=== PATIENT | female | born 1995 | race American Indian/Alaskan Native ===

== ENCOUNTER 2016-11-28 18:52 | Emergency (ER) | payer MEDICAID ==
[2016-11-28 19:41] LABS: Basophils % (Auto) 0.2 % (0.0-1.8); Eosinophils % (Auto) 1.3 % (0.0-4.3); Hematocrit 36.4 % (30.3-42.9); Mean Corpuscular HGB Conc 33 % (30-34); Mean Corpuscular Hemoglobin 27 pg (28-32); Mean Corpuscular Volume 83 fl (79-97); Platelet Count 240 K/mm3 (140-440); Red Blood Count 4.42 M/mm3 (3.65-5.03); White Blood Count 7.5 K/mm3 (4.5-11.0)
[2016-11-28 19:44] LABS: Red Cell Distribution Width 20.2 % (13.2-15.2)
[2016-11-28 20:26] LABS: Bilirubin,Urine NEG (Negative); Blood,Urine SM (Negative); Ketones,Urine NEG (Negative); Leukocyte Esterase,Urine SM (Negative); Nitrite,Urine NEG (Negative); Protein,Urine <15 mg/dL mg/dL (Negative); Urobilinogen,Urine < 2.0 mg/dL (<2.0)
[2016-11-29 03:47] VITALS: BP 114/74
[2016-11-29 05:01] LABS: Anion Gap 18 mmol/L; BUN/Creatinine Ratio 11.66; Blood Urea Nitrogen 7 mg/dL (7-17); Calcium 8.9 mg/dL (8.4-10.2); Carbon Dioxide 25 mmol/L (22-30); Glucose 110 mg/dL (65-100); Potassium 3.7 mmol/L (3.6-5.0); Sodium 142 mmol/L (137-145)
--- NOTE | 2016-11-29 05:46 | Ultrasound Report ---
FINAL REPORT PROCEDURE: US TRANSVAGINAL TECHNIQUE: Real-time transvaginal sonography in multiple planes of the pelvis was performed with image documentation. This examination was performed without Doppler. Vascular abnormalities, including ovarian torsion, will not be detectable without Doppler evaluation. CPT 44128 HISTORY: pelvic pain COMPARISON: No prior studies are available for comparison. FINDINGS: UTERUS Size: 8.5 x 5.5 x 5.6 cm. Endometrial thickness: 20.8 mm. Orientation: anteverted. Cervix: Normal. Fibroids/masses: None. RIGHT Ovary: 4.2 x 2.7 x 2.9 cm. Appearance: There is a 2.8 centimeters cyst.. LEFT Ovary: 3.2 x 1.8 x 2.0 cm. Appearance: There is a 1.6 centimeter complex cyst.. Pelvic fluid: None. Other: None. IMPRESSION: There are bilateral ovarian cysts. There is no torsion or mass. There is no free pelvic fluid..
--- NOTE | 2016-11-29 05:47 | Ultrasound Report ---
FINAL REPORT PROCEDURE: US pelvic duplex Doppler ultrasound TECHNIQUE: Real-time transabdominal sonography in multiple planes of the pelvis was performed with image documentation. This examination was performed without Doppler. Vascular abnormalities, including ovarian torsion, will not be detectable without Doppler evaluation. HISTORY: pelvic pain COMPARISON: No prior studies are available for comparison. FINDINGS: UTERUS Size: 8.5 x 5.5 x 5.6 cm. Endometrial thickness: 20.8 mm. Orientation: anteverted. Cervix: Normal. Fibroids/masses: None. RIGHT Ovary: 4.2 x 2.7 x 2.9 cm. Appearance: There is a 2.8 centimeters cyst.. LEFT Ovary: 3.2 x 1.8 x 2.0 cm. Appearance: There is a 1.6 centimeter complex cyst.. Pelvic fluid: None. Other: None. IMPRESSION: There are bilateral ovarian cysts. There is no torsion or mass. There is no free pelvic fluid..
--- NOTE | 2016-11-29 06:04 | Emergency Department Report ---
HPI - General Chief Complaint: Abdominal Pain Time Seen by Provider: 11/29/16 03:37 - HPI HPI: This is a 21-year-old -[place] female who presents to the emergency department with complaint of lower abdominal and/or pelvic discomfort since yesterday. She also complains of some mild vaginal bleeding. Patient says that she had her last Reymundo. About 9 days ago. Despite the fact that she admits to a regular. She is convinced that she is . She feels as if she can feel the baby moving. She did not take any home tests or any other previous visits to an [facility]. The vaginal bleeding was light and has resolved since she has been in the emergency department. She says that she used four total pads today. The patient is with one previous miscarriage and one live child. She does not have an [facility]. She is not taken anything for symptoms prior to presentation. She denies any vaginal discharge, dysuria, fever, nausea, vomiting. ED Past Medical Hx - Past Medical History Previous Medical History?: No - Surgical History Past Surgical History?: No - Social History Smoking Status: Current Every Day Smoker Substance Use Type: None - Medications Home Medications: Home Medications Medication Instructions Recorded Confirmed Last Taken Type No Known Home Medications [No 11/29/16 11/29/16 Unknown History Reported Home Medications] ED Review of Systems ROS: Stated complaint: POSS MISCARRIAGE Other details as noted in HPI Comment: All other systems reviewed and negative Constitutional: denies: chills, fever Eyes: denies: eye pain, eye discharge, vision change ENT: denies: ear pain, throat pain Respiratory: denies: cough, shortness of breath, wheezing Cardiovascular: denies: chest pain, palpitations Gastrointestinal: abdominal pain. denies: nausea, vomiting Genitourinary: other (vag bleed). denies: urgency, dysuria, discharge Musculoskeletal: denies: back pain, joint swelling, arthralgia Skin: denies: rash, lesions Neurological: denies: headache, weakness, paresthesias Physical Exam - Physical Exam Vital Signs: Vital Signs 11/28/16 11/29/16 11/29/16 19:14 03:38 03:45 Temperature 98.6 F 97.4 F L Pulse Rate 94 H 75 Respiratory 20 20 Rate Blood Pressure 150/84 Blood Pressure 114/74 [Left] O2 Sat by Pulse 100 99 99 Oximetry Physical Exam: GENERAL: The patient is well-developed well-nourished. HEENT: Normocephalic. Atraumatic. Extraocular motions are intact. Patient has moist mucous membranes. Pupils equal reactive to light bilaterally. NECK: Supple. Trachea is midline. CHEST/LUNGS: Clear to auscultation. There is no respiratory distress noted. HEART/CARDIOVASCULAR: Regular. There is no tachycardia. There is no gallop rub or murmur. ABDOMEN: Abdomen is soft. There is some tenderness to palpation to the lower quadrants of the abdomen. No guarding or rebound tenderness. Patient has normal bowel sounds. There is no abdominal distention. SKIN: Skin is warm and dry. NEURO: The patient is awake, alert, and oriented. The patient is cooperative. The patient has no focal neurologic deficits. The patient has normal speech and gait. MUSCULOSKELETAL: There is no tenderness or deformity. There is no limitation range of motion. There is no evidence of acute injury. ED Course Vital Signs 11/28/16 11/29/16 11/29/16 19:14 03:38 03:45 Temperature 98.6 F 97.4 F L Pulse Rate 94 H 75 Respiratory 20 20 Rate Blood Pressure 150/84 Blood Pressure 114/74 [Left] O2 Sat by Pulse 100 99 99 Oximetry ED Medical Decision Making - Lab Data Result diagrams: 11/28/16 19:28 11/29/16 04:22 - Radiology Data Radiology results: report reviewed Transvaginal/pelvic ultrasound shows bilateral ovarian cysts. 2.8 cm on the right and 1.6 cm on the left. No torsion or mass. No free fluid in the pelvis. - Medical Decision Making 21-year-old female presents with 24 hours of lower abdominal and/or pelvic discomfort as well as some mild vaginal bleeding. Patient is convinced she is and concerned that she is having a miscarriage. Patient had a negative urine test. A quantitative beta hCG was also sent that came back negative. Despite discussing this with the patient, she still is convinced that she is . For this reason, as well as to evaluate her lower abdominal and/or pelvic discomfort, a transvaginal ultrasound was done. It shows a bilateral ovarian cysts which could be the source of the patient's discomfort. There is no sign of any acute uterine . Patient will be given referrals for [facility]. She is to return to the emergency department with any worsening of her symptoms or any acute distress. - Differential Diagnosis , miscarriage, ovarian cyst, ovarian torsion, UTI Critical Care Time: No Critical care attestation.: If time is entered above; I have spent that time in minutes in the direct care of this critically ill patient, excluding procedure time. ED Disposition Clinical Impression: Pelvic pain, Dysfunctional uterine bleeding Ovarian cyst Qualifiers: Laterality: bilateral Qualified Code(s): N83.201 - Unspecified ovarian cyst, right side; N83.202 - Unspecified ovarian cyst, left side Disposition: DISCHARGED TO HOME OR SELFCARE Is pt being admited?: No Condition: Stable Instructions: Abdominal Pain (ED), Dysfunctional Uterine Bleeding (ED), Ovarian Cyst (ED) Additional Instructions: Please follow-up with an [facility] in the next few days. Return to the emergency department with any worsening of your symptoms or any acute distress. Referrals: PRIMARY CARE, [Primary Care Provider] - 3-5 Days NELSON SINGH MD [Staff Physician] - 3-5 Days ANIYA HEART MD [Staff Physician] - 3-5 Days Time of Disposition: 06:05
== END 2016-11-29 06:22 | disposition home or self-care (01) ==
LOC: ED 18:52
DX: N93.8 Other specified abnormal uterine and vaginal bleeding (principal); N83.201 Unspecified ovarian cyst, right side; N83.202 Unspecified ovarian cyst, left side; F17.200 Nicotine dependence, unspecified, uncomplicated
CPT/HCPCS: 36415; 76830; 80048; 81001; 84702; 84703; 85025; 86850; 86900; 86901; 93975; 99284

== ENCOUNTER 2017-01-03 10:41 | Emergency (ER) | payer MEDICAID ==
[2017-01-03 11:15] VITALS: BP 121/86
--- NOTE | 2017-01-03 12:07 | Emergency Department Report ---
ED ENT HPI - General Chief complaint: Dental/Oral Stated complaint: LUMPS IN BOTH BREASTS Time Seen by Provider: 01/03/17 11:26 Source: patient Mode of arrival: Ambulatory Limitations: No Limitations - History of Present Illness complaint: tooth pain, other (b breast pain w polycystic breast disease w us a few months back. they want to remove the cysts but she can not take off work to do so) Improves with: none Worsens with: none - Related Data Previous Rx's Medication Instructions Recorded Last Taken Type Amoxicillin 500 mg PO BID #20 capsule 01/03/17 Unknown Rx Allergies Allergy/AdvReac Type Severity Reaction Status Date / Time No Known Allergies Allergy Verified 01/03/17 11:09 ED Dental HPI - General Chief complaint: Dental/Oral Stated complaint: LUMPS IN BOTH BREASTS Time Seen by Provider: 01/03/17 11:26 Source: patient Mode of arrival: Ambulatory Limitations: No Limitations - Related Data Previous Rx's Medication Instructions Recorded Last Taken Type Amoxicillin 500 mg PO BID #20 capsule 01/03/17 Unknown Rx Allergies Allergy/AdvReac Type Severity Reaction Status Date / Time No Known Allergies Allergy Verified 01/03/17 11:09 ED Review of Systems ROS: Stated complaint: LUMPS IN BOTH BREASTS Other details as noted in HPI Comment: All other systems reviewed and negative Constitutional: no symptoms reported Eyes: as per HPI ENT: as per HPI, other (dental pain b lower) Respiratory: no symptoms reported Cardiovascular: as per HPI Endocrine: no symptoms reported, other (b breast pain chronic) Gastrointestinal: as per HPI Genitourinary: as per HPI, other (lmp 12/25) Musculoskeletal: as per HPI Skin: as per HPI Neurological: as per HPI Psychiatric: as per HPI Hematological/Lymphatic: as per HPI ED Past Medical Hx - Past Medical History Hx Asthma: Yes - Surgical History Past Surgical History?: No - Social History Smoking Status: Current Every Day Smoker Substance Use Type: None - Medications Home Medications: Home Medications Medication Instructions Recorded Confirmed Last Taken Type Amoxicillin 500 mg PO BID #20 capsule 01/03/17 Unknown Rx ED Physical Exam - General Limitations: No Limitations General appearance: alert, in no apparent distress - Head Head exam: Present: atraumatic - Eye Eye exam: Present: normal appearance - ENT ENT exam: Present: normal exam, normal orophraynx, other (b lower wisdom teeth partially through) - Neck Neck exam: Present: normal inspection - Respiratory Respiratory exam: Present: normal lung sounds bilaterally - Cardiovascular Cardiovascular Exam: Present: regular rate - GI/Abdominal GI/Abdominal exam: Present: soft - Extremities Exam Extremities exam: Present: normal inspection - Neurological Exam Neurological exam: Present: alert, altered, oriented X3 - Psychiatric Psychiatric exam: Present: normal affect, normal mood - Skin Skin exam: Present: warm, dry, intact, other (polycystic breast- being removed this summer. no infection. 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 ED Disposition Clinical Impression: Breast pain, Pain, dental Disposition: DISCHARGED TO HOME OR SELFCARE Is pt being admited?: No Does the pt Need Aspirin: No Condition: Good Additional Instructions: warm compresses may help the breast med as ordered follow up breast MD and Dentist Prescriptions: Amoxicillin 500 mg PO BID #20 capsule Referrals: PRIMARY CARE,MD [Primary Care Provider] - 3-5 Days Time of Disposition: 12:08
== END 2017-01-03 12:24 | disposition home or self-care (01) ==
LOC: ED 10:41
DX: K08.89 Other specified disorders of teeth and supporting structures (principal); N64.4 Mastodynia; J45.909 Unspecified asthma, uncomplicated; F17.200 Nicotine dependence, unspecified, uncomplicated
CPT/HCPCS: 99282

== ENCOUNTER 2018-12-10 17:38 | Emergency (ER) | payer SELFPAY ==
[2018-12-10 17:50] VITALS: BP 127/82
--- NOTE | 2018-12-10 17:52 | Emergency Department Report ---
Chief Complaint: Dental/Oral Stated Complaint: PAIN IN BREAST/TEETH Time Seen by Provider: 12/10/18 17:49 - HPI History of Present Illness: This is a 23 y.o. female that presents to the ER with toothache and bumps in right breast. Patient states she was given pain medication by grandmother with no improvement of symptoms. States wisdom teeth are growing in side horizontally causing severe pain. Patient reports pain occur when it rain in both breast causing pain. - Exam Vital Signs: Vital Signs 12/10/18 17:49 Temperature 99.4 F Pulse Rate 89 Respiratory 20 Rate Blood Pressure 127/82 O2 Sat by Pulse 97 Oximetry MSE screening note: Focused history and physical exam performed. Due to findings the following was ordered: ACC for further evaluation. ED Disposition for MSE Condition: Stable
== END 2018-12-10 23:25 ==
LOC: ED 17:38
DX: N64.4 Mastodynia (principal); Z53.21 Procedure and treatment not carried out due to patient leaving prior to being seen by health care provider

== ENCOUNTER 2021-06-22 08:13 | Emergency (ER) | payer SELFPAY ==
[2021-06-22 08:16] VITALS: BP 159/64
[2021-06-22] MEDS ORDERED: LORazepam 1 MG TAB PO ONE (08:29)
--- NOTE | 2021-06-22 08:32 | Emergency Department Report ---
ED General Adult HPI - General Chief complaint: Chest Pain Stated complaint: CHEST PAIN Time Seen by Provider: 06/22/21 08:26 Source: patient Mode of arrival: Ambulatory Limitations: No Limitations - History of Present Illness Initial comments: There is a pleasant 25-year-old female presents the emergency department with chief complaint of a panic attack this morning. Patient reports a history of anxiety, seizures and stroke. She states she is supposed to be taking Keppra daily but has been out of it for the past many months. She reports she had a seizure last month. States she woke up out of her sleep this morning and felt that her heart was racing she was short of breath and she felt very anxious. She states this is very similar to when she has had panic attacks in the past. She also reports she has been having a sharp pain in her chest that hurts with movement and palpation. She denies associated fever, chills, night sweats, headache, dizziness, blurry vision, nausea,, diarrhea, weakness or any other associated symptoms. - Related Data Previous Rx's Medication Instructions Recorded Last Taken Type Amoxicillin 500 mg PO BID #20 capsule 01/03/17 Unknown Rx Allergies Allergy/AdvReac Type Severity Reaction Status Date / Time No Known Allergies Allergy Verified 01/03/17 11:09 ED Review of Systems ROS: Stated complaint: CHEST PAIN Other details as noted in HPI Comment: All other systems reviewed and negative Constitutional: denies: chills, fever Eyes: denies: eye pain, eye discharge, vision change ENT: denies: ear pain, throat pain Respiratory: see HPI, shortness of breath. denies: cough, wheezing Cardiovascular: as per HPI, chest pain. denies: palpitations Endocrine: no symptoms reported Gastrointestinal: denies: abdominal pain, nausea, diarrhea Genitourinary: denies: urgency, dysuria, discharge Musculoskeletal: denies: back pain, joint swelling, arthralgia Skin: denies: rash, lesions Neurological: denies: headache, weakness, paresthesias Psychiatric: anxiety. denies: depression, auditory hallucinations, visual hallucinations, homicidal thoughts, suicidal thoughts Hematological/Lymphatic: denies: easy bleeding, easy bruising ED Past Medical Hx - Past Medical History Previous Medical History?: Yes Hx Asthma: Yes - Family History Family history: no significant - Social History Smoking Status: Current Some Day Smoker Substance Use Type: None - Medications Home Medications: Home Medications Medication Instructions Recorded Confirmed Last Taken Type Amoxicillin 500 mg PO BID #20 capsule 01/03/17 Unknown Rx ED Physical Exam - General Limitations: No Limitations General appearance: alert, in no apparent distress, anxious - Head Head exam: Present: atraumatic, normocephalic - Eye Eye exam: Present: normal appearance, PERRL, EOMI Pupils: Present: normal accommodation - ENT ENT exam: Present: normal exam, normal orophraynx, mucous membranes moist - Neck Neck exam: Present: normal inspection, full ROM. Absent: tenderness, meningismus - Respiratory Respiratory exam: Present: normal lung sounds bilaterally, chest wall tenderness (Tenderness to the mid chest wall). Absent: respiratory distress, wheezes, rales, rhonchi, stridor - Cardiovascular Cardiovascular Exam: Present: regular rate, normal rhythm, normal heart sounds. Absent: systolic murmur, diastolic murmur, rubs, gallop - GI/Abdominal GI/Abdominal exam: Present: soft, normal bowel sounds - Extremities Exam Extremities exam: Present: normal inspection, full ROM. Absent: tenderness, calf tenderness (No posterior calf tenderness, no lower extremity edema, negative Homans' sign bilaterally, no palpable cords.) - Back Exam Back exam: Present: normal inspection - Neurological Exam Neurological exam: Present: alert, oriented X3, normal gait - Psychiatric Psychiatric exam: Present: normal affect, normal mood, anxious - Skin Skin exam: Present: warm, dry, intact, normal color. Absent: rash ED Course Vital Signs 06/22/21 08:14 Temperature 98 F Pulse Rate 80 Respiratory 16 Rate Blood Pressure 159/64 [Left] O2 Sat by Pulse 97 Oximetry - Reevaluation(s) Reevaluation #1: 06/22/21 08:35 Patient nontoxic in no acute distress. Vital signs are stable. She is PERC negative and a low risk by Wells criteria. EKG and chest x-ray were ordered. Patient has low risk for acute coronary syndrome at this time and with a negative EKG my suspicion for this would be unlikely. She denies any cocaine use or other drug use. She does report she occasionally smokes but otherwise not any other cardiac risk factors. Chest x-ray was also ordered to rule out acute process such as pneumothorax, pneumomediastinum, pneumonia and to check the mediastinum. The patient had equal bilateral radial pulses and normal breath sounds throughout although poor effort several low suspicion for this as well. We will also run a test and if negative patient will be given a dose of oral Ativan to help with her anxiety. Reevaluation #2: 06/22/21 11:08 EKG was reviewed with attending and recommended labs and D-dimer due to the tachycardia. Initially the patient was PERC negative however when she became tachycardic at this was no longer the case so PE need to be ruled out. When I went to go discussed this with the patient I was informed by the nursing staff that she eloped. ED Medical Decision Making - EKG Data -: EKG Interpreted by Me EKG shows normal: sinus rhythm Rate: tachycardia - EKG Data Interpretation: other (Sinus tachycardia with a ventricular rate of 104, left atrial enlargement, low voltage, no acute ST-T wave abnormalities otherwise.) - Radiology Data Radiology results: report reviewed, image reviewed CHEST 2 VIEWS INDICATION / CLINICAL INFORMATION: chest pain. COMPARISON: None available. FINDINGS: SUPPORT DEVICES: None. HEART / MEDIASTINUM: No significant abnormality. LUNGS / PLEURA: Mild interstitial prominence in the lung bases. No focal lung consolidation. No pneumothorax. ADDITIONAL FINDINGS: No significant additional findings. IMPRESSION: 1. Mild interstitial prominence in the lung bases is nonspecific but can be seen with small airways disease. Recommend clinical correlation. Signer Name: Ted Caceres MD Signed: 06/22/2021 9:40 AM Workstation Name: [id number] Transcribed By: ESHA Dictated By: TED CACERES MD Electronically Authenticated By: TED CACERES MD Signed Date/Time: 06/22/21 0940 - Medical Decision Making Patient eloped prior to cardiac work-up and labs. EKG returned abnormal however when I went to go speak with the patient about this the nursing staff informed she had eloped. She initially was PERC negative however when her EKG showed sinus tachycardia this was no longer the case. D-dimer, cardiac enzymes basic labs were ordered. Discussed with attending who agreed. Patient left prior to any of this work-up and this cannot be ruled out at this time. - Differential Diagnosis Pulmonary embolism, acute coronary syndrome, anxiety Critical care attestation.: If time is entered above; I have spent that time in minutes in the direct care of this critically ill patient, excluding procedure time. ED Disposition Clinical Impression: Nonspecific chest pain Disposition: LEFT AWOL/ELOPED Is pt being admited?: No Condition: Undetermined Time of Disposition: 11:07
--- NOTE | 2021-06-22 09:45 | XRay Report ---
CHEST 2 VIEWS INDICATION / CLINICAL INFORMATION: chest pain. COMPARISON: None available. FINDINGS: SUPPORT DEVICES: None. HEART / MEDIASTINUM: No significant abnormality. LUNGS / PLEURA: Mild interstitial prominence in the lung bases. No focal lung consolidation. No pneum othorax. ADDITIONAL FINDINGS: No significant additional findings. IMPRESSION: 1. Mild interstitial prominence in the lung bases is nonspecific but can be seen with small airways d isease. Recommend clinical correlation. Signer Name: Gerardo Caceres MD Signed: 06/22/2021 9:40 AM Workstation Name: [id number]
--- NOTE | 2021-06-22 11:17 | Electrocardiograph Report ---
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
== END 2021-06-22 10:52 | disposition left against medical advice (07) ==
LOC: ED 08:13
DX: R07.89 Other chest pain (principal); J45.909 Unspecified asthma, uncomplicated; F41.9 Anxiety disorder, unspecified; F17.200 Nicotine dependence, unspecified, uncomplicated; Z79.899 Other long term (current) drug therapy
CPT/HCPCS: 71046; 93005; 99283

== ENCOUNTER 2021-12-09 01:34 | Inpatient (IN) | payer SELFPAY ==
[2021-12-09] MEDS ORDERED: NALOXONE 0.4 MG/1 ML INJ IV ONE (01:40)
[2021-12-09] MEDS ORDERED: NALOXONE 2 MG/2 ML INJ ONE (01:40)
[2021-12-09] MEDS ORDERED: NALOXONE 2 MG/2 ML INJ IV ONE (01:40)
[2021-12-09] MEDS ORDERED: SODIUM CHLORIDE 0.9% 1000 ML 1,000 ML IV ONE (01:43)
[2021-12-09] MEDS ORDERED: NALOXONE 2 MG/2 ML 2 MG in SODIUM CHLORIDE 0.9% 500 ML 500 ML IV ONE ×2 (01:44→04:55)
[2021-12-09 02:33] LABS: RBC,Urine < 1.0 /HPF (0.0-6.0)
[2021-12-09 02:33] LABS: Basophils % (Auto) 0.2 % (0.0-1.8); Eosinophils # (Auto) 0.1 K/mm3 (0.0-0.4); Eosinophils % (Auto) 1.2 % (0.0-4.3); Hematocrit 45.2 % (30.3-42.9); Hemoglobin 14.6 gm/dl (10.1-14.3); Lymphocytes # (Auto) 1.9 K/mm3 (1.2-5.4); Lymphocytes % (Auto) 17.6 % (13.4-35.0); Mean Corpuscular HGB Conc 32 % (30-34); Mean Corpuscular Volume 86 fl (79-97); Monocytes # (Auto) 0.7 K/mm3 (0.0-0.8); Monocytes % (Auto) 6.1 % (0.0-7.3); Platelet Count 256 K/mm3 (140-440); Red Blood Count 5.28 M/mm3 (3.65-5.03); Red Cell Distribution Width 17.7 % (13.2-15.2)
[2021-12-09] MEDS ORDERED: ONDANSETRON 4 MG/2 ML INJ IV ONE ×2 (02:34→03:53)
[2021-12-09 02:35] LABS: Bilirubin,Urine Negative (Negative); Blood,Urine Trace (Negative); Color,Urine Colorless (Yellow)
[2021-12-09 02:36] LABS: HCG Qualitative,Urine Negative (Negative); Urobilinogen,Urine < 2.0 mg/dL (<2.0); WBC,Urine < 1.0 /HPF (0.0-6.0)
[2021-12-09 02:45] LABS: Amphetamine Screen,Urine PRESUMPTIVE NEGATIVE; Benzodiazepines Screen,Urine PRESUMPTIVE NEGATIVE; Cannabinoid Screen,Urine PRESUMPTIVE NEGATIVE; Cocaine Screen,Urine PRESUMPTIVE NEGATIVE; Methadone Screen,Urine PRESUMPTIVE NEGATIVE; Opiate Screen,Urine PRESUMPTIVE NEGATIVE
[2021-12-09 02:54] LABS: Alanine Aminotransferase 55 units/L (7-56); Albumin 4.2 g/dL (3.9-5); BUN/Creatinine Ratio 9; Blood Urea Nitrogen 9 mg/dL (7-17); Calcium 9.7 mg/dL (8.4-10.2); Hemolysis Index 12
--- NOTE | 2021-12-09 04:23 | XRay Report ---
CHEST 1 VIEW 12/09/2021 3:16 AM INDICATION / CLINICAL INFORMATION: Dyspnea. COMPARISON: Chest x-ray on 06/23/2021 FINDINGS: SUPPORT DEVICES: None. HEART / MEDIASTINUM: No significant abnormality. LUNGS / PLEURA: No significant pulmonary or pleural abnormality. No pneumothorax. ADDITIONAL FINDINGS: No significant additional findings. IMPRESSION: 1. No acute findings. Signer Name: Momo Bonner MD Signed: 12/09/2021 4:19 AM Workstation Name: [id number]
--- NOTE | 2021-12-09 05:05 | Emergency Department Report ---
History of Present Illness - General Chief Complaint: Overdose Stated Complaint: SEIZURE Time Seen by Provider: 12/09/21 01:43 Source: EMS Mode of arrival: Stretcher Limitations: No Limitations - History of Present Illness Initial Comments: EMS states called to scene possible post-seizure, states family on scene said she "ran out of seizure medication and she is od'ing albuteral" EMS states no seizure activity during transport. Pt was originally 77% on RA upon arrival, brought to 89% with 15LNRB. pt deines any SI but she took 8 oxycodone for sleep -: Gradual, hour(s) Intent: unknown How Overdose Was Discovered: other (family called ) Associated Symptoms: depression, shortness of breath, dizziness, lethargy, seizure - Related Data Previous Rx's Medication Instructions Recorded Last Taken Type Amoxicillin 500 mg PO BID #20 capsule 01/03/17 Unknown Rx Allergies Allergy/AdvReac Type Severity Reaction Status Date / Time No Known Allergies Allergy Verified 01/03/17 11:09 ED Review of Systems ROS: Stated complaint: SEIZURE Other details as noted in HPI Comment: Unobtainable due to pts medical conditions ED Past Medical Hx - Past Medical History Previous Medical History?: No Hx Hypertension: No Hx CVA: No Hx Asthma: Yes - Social History Smoking Status: Current Every Day Smoker - Medications Home Medications: Home Medications Medication Instructions Recorded Confirmed Last Taken Type Amoxicillin 500 mg PO BID #20 capsule 01/03/17 Unknown Rx ED Physical Exam - General Limitations: No Limitations General appearance: lethargic, obtunded - Head Head exam: Present: atraumatic, normocephalic - Eye Eye exam: Present: normal appearance - ENT ENT exam: Present: mucous membranes moist - Neck Neck exam: Present: normal inspection - Respiratory Respiratory exam: Present: decreased breath sounds. Absent: respiratory distress - Cardiovascular Cardiovascular Exam: Present: regular rate, normal rhythm. Absent: systolic murmur, diastolic murmur, rubs, gallop - GI/Abdominal GI/Abdominal exam: Present: soft, normal bowel sounds - Extremities Exam Extremities exam: Present: normal inspection - Back Exam Back exam: Present: normal inspection - Neurological Exam Neurological exam: Present: other (sleepy drowsy , arousable with sternal rub ) - Psychiatric Psychiatric exam: Present: anxious. Absent: suicidal ideation - Skin Skin exam: Absent: rash ED Course Vital Signs 0412/09/21 12/09/21 01:35 01:44 01:46 Temperature 98.8 F Pulse Rate 85 Respiratory 28 H 21 61 H Rate Blood Pressure 154/99 O2 Sat by Pulse 89 85 Oximetry 12/09/21 12/09/21 12/09/21 02:00 02:16 02:32 Temperature Pulse Rate 71 Respiratory 31 H 12 Rate Blood Pressure 148/99 143/102 143/102 O2 Sat by Pulse 89 95 92 Oximetry 12/09/21 12/09/21 12/09/21 02:46 03:00 03:06 Temperature Pulse Rate 80 89 Respiratory 32 H 31 H 33 H Rate Blood Pressure 122/82 127/88 O2 Sat by Pulse 94 95 96 Oximetry 12/09/21 12/09/21 12/09/21 03:16 03:30 03:46 Temperature Pulse Rate 74 103 H 76 Respiratory 30 H 34 H 29 H Rate Blood Pressure 127/88 125/84 125/84 O2 Sat by Pulse 94 94 96 Oximetry 12/09/21 12/09/21 12/09/21 04:00 04:16 04:30 Temperature Pulse Rate 94 H 82 96 H Respiratory 28 H 26 H 28 H Rate Blood Pressure 115/79 115/79 125/85 O2 Sat by Pulse 97 94 95 Oximetry ED Medical Decision Making - Lab Data Result diagrams: 12/09/21 02:00 12/09/21 02:00 - EKG Data -: EKG Interpreted by Sc EKG shows normal: sinus rhythm - EKG Data Interpretation: other (LAFB) - Radiology Data Radiology results: report reviewed, image reviewed - Medical Decision Making marcan given with positive results started on narcan drip , work up negative Critical care attestation.: If time is entered above; I have spent that time in minutes in the direct care of this critically ill patient, excluding procedure time. ED Disposition Clinical Impression: Altered mental status, Overdose, Hypoxia Disposition: ADMITTED INPATIENT Is pt being admited?: Yes Does the pt Need Aspirin: No Condition: Stable Referrals: HILL WALLS MD [Primary Care Provider] - 3-5 Days
[2021-12-09] MEDS ORDERED: MORPHINE 2 MG/1 ML INJ IV PRN (05:19)
[2021-12-09] MEDS ORDERED: HYDROmorphone 1 MG/1 ML INJ IV PRN (05:19)
[2021-12-09] MEDS ORDERED: ALBUTEROL 2.5 MG/3 ML NEBU IH PRN (05:19)
[2021-12-09] MEDS ORDERED: ONDANSETRON 4 MG/2 ML INJ IV PRN (05:19)
[2021-12-09] MEDS ORDERED: ACETAMINOPHEN 325 MG TAB PO PRN (05:19)
--- NOTE | 2021-12-09 05:26 | History and Physical Report ---
History of Present Illness Date of examination: 12/09/21 Date of admission: 12/09/21 Chief complaint: Altered mental status Drug overdose History of present illness: 26 years old female with history of asthma was brought to the emergency room by EMS because EMS states called to scene possible post-seizure, states family on scene said she "ran out of seizure medication and she is taking albuteral" . EMS states no seizure activity during transport. Pt was originally 77% on RA upon arrival, brought to 89% with 15LNRB. pt deines any SI but she took 8 oxycodone for sleep. Subsequently patient was given Narcan with improvement of oxygen saturation to 96%. Subsequently patient was put on Narcan drip and oxygen. So going to admit the patient to the IMCU. We will consult psych for evaluation. Past History Past Medical History: other (Asthma) Past Surgical History: No surgical history Social history: smoking Family history: no significant family history Medications and Allergies Allergies Allergy/AdvReac Type Severity Reaction Status Date / Time No Known Allergies Allergy Verified 01/03/17 11:09 Home Medications Medication Instructions Recorded Confirmed Last Taken Type Amoxicillin 500 mg PO BID #20 capsule 01/03/17 Unknown Rx Active Meds: Active Medications Naloxone HCl 2 mg/ Sodium (Chloride) 502 mls @ 100.4 mls/hr IV DIRECT ONE; Protocol Stop: 12/09/21 09:54 Review of Systems All systems: negative Constitutional: fatigue, malaise, lethargy, other (Altered mental status) Exam - Constitutional Vitals: Temp Pulse Resp BP Pulse Ox 98.8 F 96 H 28 H 125/85 95 12/09/21 01:35 12/09/21 04:30 12/09/21 04:30 12/09/21 04:30 12/09/21 04:30 General appearance: Present: mild distress, well-nourished - EENT Eyes: Present: PERRL ENT: hearing intact, clear oral mucosa - Neck Neck: Present: supple, normal ROM - Respiratory Respiratory effort: normal Respiratory: bilateral: diminished - Cardiovascular Heart Sounds: Present: S1 & S2. Absent: rub, click - Extremities Extremities: pulses symmetrical, No edema Peripheral Pulses: within normal limits - Abdominal General gastrointestinal: Present: soft, non-tender, non-distended, normal bowel sounds Female genitourinary: Present: normal - Integumentary Integumentary: Present: clear, warm, dry - Musculoskeletal Musculoskeletal: gait normal, strength equal bilaterally - Psychiatric Psychiatric: other (Patient is altered mental status) - Neurologic Neurologic: CNII-XII intact, moves all extremities, other (Patient is altered mental status) Results - Labs CBC & Chem 7: 12/09/21 02:00 12/09/21 02:00 Labs: Laboratory Last Values WBC 10.7 K/mm3 (4.5-11.0) 12/09/21 02:00 RBC 5.28 M/mm3 (3.65-5.03) H 12/09/21 02:00 Hgb 14.6 gm/dl (10.1-14.3) H 12/09/21 02:00 Hct 45.2 % (30.3-42.9) H 12/09/21 02:00 MCV 86 fl (79-97) 12/09/21 02:00 MCH 28 pg (28-32) 12/09/21 02:00 MCHC 32 % (30-34) 12/09/21 02:00 RDW 17.7 % (13.2-15.2) H 12/09/21 02:00 Plt Count 256 K/mm3 (140-440) 12/09/21 02:00 Lymph % (Auto) 17.6 % (13.4-35.0) 12/09/21 02:00 [place]y % (Auto) 6.1 % (0.0-7.3) 12/09/21 02:00 Eos % (Auto) 1.2 % (0.0-4.3) 12/09/21 02:00 Baso % (Auto) 0.2 % (0.0-1.8) 12/09/21 02:00 Lymph # (Auto) 1.9 K/mm3 (1.2-5.4) 12/09/21 02:00 [place]y # (Auto) 0.7 K/mm3 (0.0-0.8) 12/09/21 02:00 Eos # (Auto) 0.1 K/mm3 (0.0-0.4) 12/09/21 02:00 Baso # (Auto) 0.0 K/mm3 (0.0-0.1) 12/09/21 02:00 Seg Neutrophils % 74.9 % (40.0-70.0) H 12/09/21 02:00 Seg Neutrophils # 8.0 K/mm3 (1.8-7.7) H 12/09/21 02:00 Sodium 136 mmol/L (137-145) L 12/09/21 02:00 Potassium 3.3 mmol/L (3.6-5.0) L 12/09/21 02:00 Chloride 99.6 mmol/L (98-107) 12/09/21 02:00 Carbon Dioxide 15 mmol/L (22-30) L 12/09/21 02:00 Anion Gap 25 mmol/L 12/09/21 02:00 BUN 9 mg/dL (7-17) 12/09/21 02:00 Creatinine 1.0 mg/dL (0.6-1.2) 12/09/21 02:00 Estimated GFR > 60 ml/min 12/09/21 02:00 BUN/Creatinine Ratio 9 % 12/09/21 02:00 Glucose 246 mg/dL (65-100) H 12/09/21 02:00 Calcium 9.7 mg/dL (8.4-10.2) 12/09/21 02:00 Total Bilirubin 0.40 mg/dL (0.1-1.2) 12/09/21 02:00 AST 54 units/L (5-40) H 12/09/21 02:00 ALT 55 units/L (7-56) 12/09/21 02:00 Alkaline Phosphatase 133 units/L (35-129) H 12/09/21 02:00 Total Protein 8.1 g/dL (6.3-8.2) 12/09/21 02:00 Albumin 4.2 g/dL (3.9-5) 12/09/21 02:00 Albumin/Globulin Ratio 1.1 % 12/09/21 02:00 Urine Color Colorless (Yellow) 12/09/21 01:59 Urine Turbidity Clear (Clear) 12/09/21 01:59 Urine pH 5.0 (5.0-7.0) 12/09/21 01:59 Ur Specific [place] 1.025 (1.003-1.030) 12/09/21 01:59 Urine Protein 100 mg/dl mg/dL (Negative) 12/09/21 01:59 Urine Glucose (UA) Negative mg/dL (Negative) 12/09/21 01:59 Urine Ketones Negative mg/dL (Negative) 12/09/21 01:59 Urine Blood Trace (Negative) 12/09/21 01:59 Urine Nitrite Neg (Negative) 12/09/21 01:59 Ur Reducing Substances Not Reportable 12/09/21 01:59 Urine Bilirubin Negative (Negative) 12/09/21 01:59 Urine Ictotest Not Reportable 12/09/21 01:59 Urine Urobilinogen < 2.0 mg/dL (<2.0) 12/09/21 01:59 Ur Leukocyte Esterase Neg (Negative) 12/09/21 01:59 Urine WBC (Auto) < 1.0 /HPF (0.0-6.0) 12/09/21 01:59 Urine RBC (Auto) < 1.0 /HPF (0.0-6.0) 12/09/21 01:59 Urine HCG, Qual Negative (Negative) 12/09/21 01:59 Salicylates < 0.3 mg/dL (2.8-20.0) L 12/09/21 02:00 Urine Opiates Screen Presumptive negative 12/09/21 01:59 Urine Methadone Screen Presumptive negative 12/09/21 01:59 Acetaminophen 5.0 ug/mL (10.0-30.0) L 12/09/21 02:00 Ur Barbiturates Screen Presumptive negative 12/09/21 01:59 Ur Phencyclidine Scrn Presumptive negative 12/09/21 01:59 Ur Amphetamines Screen Presumptive negative 12/09/21 01:59 U Benzodiazepines Scrn Presumptive negative 12/09/21 01:59 Urine Cocaine Screen Presumptive negative 12/09/21 01:59 U Marijuana (THC) Screen Presumptive negative 12/09/21 01:59 Drugs of Abuse Note Disclamer 12/09/21 01:59 Plasma/Serum Alcohol < 0.01 % (0-0.07) 12/09/21 02:00 - Imaging and Cardiology Chest x-ray: report reviewed Assessment and Plan VTE prophylaxis?: Mechanical Plan of care discussed with patient/family: Yes - Patient Problems (1) Drug overdose Current Visit: Yes Status: Acute Plan to address problem: Admit the patient to the critical care unit. We put the patient on nothing by mouth. Oxygen by nasal cannula 3 L/min normal saline at the rate of 100 cc/h. Narcan drip. We will monitor the patient closely. We also consult psych and critical care evaluation (2) Acute metabolic encephalopathy Current Visit: Yes Status: Acute Plan to address problem: Most likely secondary to drug overdose.We put the patient on nothing by mouth. Oxygen by nasal cannula 3 L/min normal saline at the rate of 100 cc/h. Narcan drip. We will monitor the patient closely. We also consult psych and critical care evaluation (3) Hyperglycemia Current Visit: Yes Status: Acute Plan to address problem: We will monitor the glucose closely. Normal saline at the rate of 100 cc/h. Recheck BMP in the morning (4) Acute respiratory failure Current Visit: Yes Status: Acute Plan to address problem: Oxygen via nasal cannula 3 L/min. DuoNeb by nebulizer every 4 hours. Albuterol via nebulizer every 4 hours as needed (5) Hypokalemia Current Visit: Yes Status: Acute Plan to address problem: Potassium is supplemented. Recheck BMP in the morning (6) Asthma Current Visit: Yes Status: Acute Plan to address problem: Oxygen via nasal penetrator per minute. DuoNeb by nebulizer every 4 hours. Albuterol via nebulizer every 4 hours as needed (7) Suicidal ideation Current Visit: Yes Status: Acute Plan to address problem: We will consult psych for evaluation (8) DVT prophylaxis Current Visit: Yes Status: Acute Plan to address problem: SCD for DVT prophylaxis. Pepcid 20 mg IV every 12 hours for GI prophylaxis. Patient is a full code
[2021-12-09] MEDS ORDERED: SODIUM CHLORIDE 0.9% 1000 ML 1,000 ML IV SCH (05:30)
[2021-12-09] MEDS ORDERED: IPRATROPIUM/ALBUTEROL SULFATE 3 ML AMPUL.NEB IH SCH (08:00)
[2021-12-09] MEDS ORDERED: POTASSIUM CHLORIDE ER 20 MEQ TAB PO SCH (09:00)
[2021-12-09] MEDS ORDERED: FAMOTIDINE 20 MG/2 ML INJ IV SCH (10:00)
[2021-12-09] MEDS ORDERED: FAMOTIDINE 20 MG TAB PO SCH (10:00)
[2021-12-09] MEDS ORDERED: AMOXICILLIN 500 MG CAP PO SCH (10:00)
[2021-12-09] MEDS ORDERED: POTASSIUM CHLORIDE 20 MEQ PACKET FEEDTUBE SCH (11:00)
--- NOTE | 2021-12-09 11:27 | Discharge Summary ---
Providers - Providers Date of Admission: 12/09/21 05:19 Date of discharge: 12/09/21 Attending physician: IFEANYI JOHNSON MD 12/09/21 Consult to Case Management [CONS] Routine Services Needed at Discharge: Healthcare Market Consultant 12/09/21 05:30 psychiatry consult [Consult to Mental Health] [CONS] Routine Reason For Exam: Drug overdose 12/09/21 08:59 Consult to Physician [CONS] Routine Comment: Consulting Provider: BULL SHELTON Physician Instructions: Reason For Exam: critical care Primary care physician: HILL WALLS Hospitalization Condition: Stable Hospital course: This is a 26-year-old female with history of substance abuse (was previously on Suboxone), fibriods, seizures, current smoker and asthma who presented to emerg ency department on 12/09 via EMS who responded to a possible seizure. Upon arrival of EMS patient SPO2 was 77 on room air and increased to 89% on 15 L nonrebreather. Patient admitted to consuming 8 oxycodone for sleep to the ED physician. Patient was given Narcan and placed on Narcan drip in the ED. Patient admitted to the hospitalist service with consults psych and CCM to [facility]. She was admitted with a 1013. 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 UDS negative and noted wit have hypokalemia which is being repleted.She has been cleared by psych and 1013 will be removed. Patient will be discharged and will need to follow up with her primary care provider within 1-2 weeks. Assessment/ Plan This is a 26 year old female with history of substance abuse (previous previously on Suboxone), fibroids, seizures, asthma and current smoker admitted for an opiate up dose. 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 Overdose, hypokalemia, current nicotine abuse, h/o subtance abuse, seizure, fibroids, asthma Time spent for discharge: 60 Core Measure Documentation - Palliative Care Palliative Care/ Comfort Measures: Not Applicable - Core Measures Any of the following diagnoses?: none Exam - Constitutional Vitals: Temp Pulse Resp BP Pulse Ox 99.2 F 84 19 139/94 97 12/09/21 10:14 12/09/21 11:00 12/09/21 11:00 12/09/21 11:00 12/09/21 11:00 General appearance: Present: no acute distress - EENT Eyes: Present: PERRL, EOM intact ENT: hearing intact, clear oral mucosa, dentition normal - Neck Neck: Present: normal ROM - Respiratory Respiratory effort: normal Respiratory: bilateral: CTA - Cardiovascular Rhythm: regular Heart Sounds: Present: S1 & S2. Absent: systolic murmur, diastolic murmur - Extremities Extremities: no ischemia, pulses intact, pulses symmetrical, No edema, normal temperature, normal color, Full ROM Peripheral Pulses: within normal limits - Abdominal General gastrointestinal: Present: soft, tender, normal bowel sounds - Integumentary Integumentary: Present: clear, warm, dry - Musculoskeletal Musculoskeletal: strength equal bilaterally - Psychiatric Psychiatric: appropriate mood/affect, cooperative - Neurologic Neurologic: CNII-XII intact, no focal deficits, moves all extremities - Allied Health Allied health notes reviewed: nursing Plan Activity: advance as tolerated Diet: regular Special Instructions: smoking cessation Additional Instructions: Report urinary emergency department or contact your memory care physician if you experience worsening symptoms. Strongly encourage compliance with antiseizure medications and nicotine abuse cessation. 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
--- NOTE | 2021-12-09 11:31 | Consultation ---
History of Present Illness - Reason for Consult Consult date: 12/09/21 Reason for consult: OD - History of Present Psychiatric Illness The patient was seen today. She is calm, and cooperative. The patient says she took what she thought was oxycodone from a friend. She says "apparently that wasn't what it was." The patient says "but I wasn't trying to kill myself." The patient states she's never had an attempt of suicidal nor been suicidal. She says she was at [facility] for addiction to pain pills. The patient says she was on Suboxone but denies being on at present. The patient denies being on any psych meds or having any psych diagnoses. She says "I have fibroids and was just trying to take something for pain." The patient says "mentally, I feel good. It's just physically, I'm hurting." She denies hallucinations of any kind. The patient denies any illicit drug use, alcohol or nicotine. PAST PSYCHIATRIC HISTORY Diagnoses: Denies Suicide attempts or Self-harm behavior: Denies Prior psychiatric hospitalizations: Yes Substance Abuse history: Denies Previous psychiatric medications tried: Denies Outpatient treatment: Denies PAST MEDICAL HISTORY: None reported Family Psychiatric History: None reported or documented SOCIAL HISTORY Marital Status: single Living Arrangements: Lives with mother Employment Status: employed Access to guns/weapons: Denies Education: History of Abuse: Yes Legal History: Unknown REVIEW OF SYSTEMS Constitutional: Negative for weight loss ENT: Negative for stridor Respiratory: Negative for cough or hemoptysis All other systems reviewed and are negative MENTAL STATUS EXAMINATION General Appearance and Behavior: Age appropriate, good hygiene, wearing appro priate clothes, fair eye contact, calm, cooperative Cooperation: Participating/engaged, but Guarded Psychomotor Behavior: Psychomotor normal Mood: fine Affect and affective range: congruent with stated mood Thought Process: Circumstantial Thought Content: None Speech: normal tone and pace Suicidal Ideation: Denies Homicidal Ideation: Denies Hallucinations: Denies Delusions: None elicited Impulse Control: Limited Insight and Judgment: Limited insight and judgment Memory: Limited Attention: attentive Orientation: Alert, oriented Assessment and Plan Unintentional Overdose Treatment Plan No meds at this time Medical: Per primary Sitter: Defer to primary Disposition: Do not recommend acute psychiatric inpatient treatment The patient to abstain from all illicit drug use Will sign off. Thanks Case staffed with Dr. Ballesteros Medications and Allergies Allergies Allergy/AdvReac Type Severity Reaction Status Date / Time No Known Allergies Allergy Verified 01/03/17 11:09 Home Medications Medication Instructions Recorded Confirmed Last Taken Type Amoxicillin 500 mg PO BID #20 capsule 01/03/17 Unknown Rx Active Meds: Active Medications Acetaminophen (Acetaminophen 325 Mg Tab) 650 mg PO Q4H PRN PRN Reason: Pain MILD(1-3)/Fever >100.5/HUBBARD Albuterol (Albuterol 2.5 Mg/3 Ml Nebu) 2.5 mg IH Q3HRT PRN PRN Reason: Shortness Of Breath Albuterol/Ipratropium (Ipratropium/Albuterol Sulfate 3 Ml Ampul.Neb) 1 ampul IH Q6HRT ESTHELA Last Admin: 12/09/21 09:04 Dose: Not Given Famotidine (Famotidine 20 Mg Tab) 20 mg PO QDAY REPLACED BY [facility] Last Admin: 12/09/21 09:18 Dose: 20 mg Sodium Chloride (Nacl 0.9% 1000 Ml) 1,000 mls @ 100 mls/hr IV DIRECT ESTHELA Ondansetron HCl (Ondansetron 4 Mg/2 Ml Inj) 4 mg IV Q8H PRN PRN Reason: Nausea And Vomiting Last Admin: 12/09/21 10:34 Dose: 4 mg Potassium Chloride (Potassium Chloride 20 Meq Packet) 40 meq FEEDTUBE Q4H ESTHELA Stop: 12/09/21 15:01 Last Admin: 12/09/21 10:36 Dose: 40 meq Sodium Chloride (Sodium Chloride 0.9% 10 Ml Flush Syringe) 10 ml IV BID REPLACED BY [facility] Sodium Chloride (Sodium Chloride 0.9% 10 Ml Flush Syringe) 10 ml IV PRN PRN PRN Reason: LINE FLUSH Mental Status Exam - Vital signs Last Vital Signs Temp 99.2 F 12/09/21 10:14 Pulse 84 12/09/21 11:00 Resp 19 12/09/21 11:00 BP 139/94 12/09/21 11:00 Pulse Ox 97 12/09/21 11:00 Results Result Diagrams: 12/09/21 02:00 12/09/21 02:00 Abnormal lab results 12/09/21 12/09/21 12/09/21 Range/Units 02:00 02:00 02:00 RBC 5.28 H (3.65-5.03) M/mm3 Hgb 14.6 H (10.1-14.3) gm/dl Hct 45.2 H (30.3-42.9) % RDW 17.7 H (13.2-15.2) % Seg Neutrophils % 74.9 H (40.0-70.0) % Seg Neutrophils # 8.0 H (1.8-7.7) K/mm3 Sodium 136 L (137-145) mmol/L Potassium 3.3 L (3.6-5.0) mmol/L Carbon Dioxide 15 L (22-30) mmol/L Glucose 246 H (65-100) mg/dL AST 54 H (5-40) units/L Alkaline Phosphatase 133 H (35-129) units/L Salicylates < 0.3 L (2.8-20.0) mg/dL Acetaminophen (10.0-30.0) ug/mL 12/09/21 Range/Units 02:00 RBC (3.65-5.03) M/mm3 Hgb (10.1-14.3) gm/dl Hct (30.3-42.9) % RDW (13.2-15.2) % Seg Neutrophils % (40.0-70.0) % Seg Neutrophils # (1.8-7.7) K/mm3 Sodium (137-145) mmol/L Potassium (3.6-5.0) mmol/L Carbon Dioxide (22-30) mmol/L Glucose (65-100) mg/dL AST (5-40) units/L Alkaline Phosphatase (35-129) units/L Salicylates (2.8-20.0) mg/dL Acetaminophen 5.0 L (10.0-30.0) ug/mL All other labs normal.
--- NOTE | 2021-12-09 11:44 | Electrocardiograph Report ---
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
[2021-12-09 12:08] VITALS: BP 137/90
== END 2021-12-09 13:16 | disposition home or self-care (01) | DRG 917 ==
LOC: ED 01:34 → CC1 05:19
PROVIDERS: ADMIT Hospitalist; ATTEND Internal Medicine
DX: T50.901A Poisoning by unspecified drugs, medicaments and biological substances, accidental (unintentional), initial encounter (principal); G93.41 Metabolic encephalopathy; J96.00 Acute respiratory failure, unspecified whether with hypoxia or hypercapnia; N17.9 Acute kidney failure, unspecified; E87.6 Hypokalemia; J45.909 Unspecified asthma, uncomplicated; Y92.89 Other specified places as the place of occurrence of the external cause; D21.9 Benign neoplasm of connective and other soft tissue, unspecified
CPT/HCPCS: 36415; 71045; 80053; 80307; 80320; 81001; 81025; 83735; 85025; 93005; 94640; 94760; G0378; Q0162; G0480; J2310; J2405; J7030; J7040

== ENCOUNTER 2021-12-31 21:07 | Emergency (ER) | payer SELFPAY ==
[2021-12-31] MEDS ORDERED: levETIRAcetam 1000 MG/NS 0.75% 1,000 MG/100 ML BAG IV ONE (22:47)
[2021-12-31] MEDS ORDERED: ONDANSETRON 4 MG/2 ML INJ IV ONE (22:48)
--- NOTE | 2021-12-31 22:51 | Emergency Department Report ---
HPI - General Chief Complaint: Seizure Time Seen by Provider: 12/31/21 22:41 - HPI HPI: Room 4 The patient is a 26-year-old female presenting with chief complaint of seizures. Patient has a history of seizure disorder and states she has been out of her Keppra for approximate 1 year. Patient states she had a generalized tonic- clonic seizure today and bit her tongue. Patient states she developed nausea and vomiting afterwards ED Past Medical Hx - Past Medical History Previous Medical History?: Yes Hx Seizures: Yes Hx Asthma: Yes - Surgical History Past Surgical History?: No Additional Surgical History: Uterine fibroid - Family History Family history: no significant - Social History Smoking Status: Current Some Day Smoker Substance Use Type: None (Denies illicit drug use) - Medications Home Medications: Home Medications Medication Instructions Recorded Confirmed Last Taken Type Amoxicillin 500 mg PO BID #20 capsule 01/03/17 Unknown Rx Ondansetron [Zofran ODT TAB] 8 mg PO Q8HR #20 tab.rapdis 01/01/22 Unknown Rx levETIRAcetam [Keppra TAB] 500 mg PO BID #90 tablet 01/01/22 Unknown Rx ED Review of Systems ROS: Stated complaint: SEIZURE/EMESIS Other details as noted in HPI Constitutional: no symptoms reported Eyes: denies: eye pain ENT: denies: throat pain Respiratory: no symptoms reported Cardiovascular: denies: chest pain Endocrine: no symptoms reported Gastrointestinal: nausea Genitourinary: denies: dysuria Musculoskeletal: denies: back pain Neurological: denies: headache Physical Exam - Physical Exam Vital Signs: Vital Signs 12/31/21 22:05 Temperature 98.4 F Pulse Rate 111 H Respiratory 20 Rate Blood Pressure 146/86 O2 Sat by Pulse 97 Oximetry Physical Exam: GENERAL: The patient is well-developed well-nourished female lying on stretcher not appearing to be in acute distress. [] HEENT: Normocephalic. Atraumatic. Extraocular motions are intact. Patient has moist mucous membranes. NECK: Supple. Trachea midline CHEST/LUNGS: Clear to auscultation. There is no respiratory distress noted. HEART/CARDIOVASCULAR: Regular. There is no tachycardia. There is no gallop rub or murmur. ABDOMEN: Abdomen is soft, nontender. Patient has normal bowel sounds. There is no abdominal distention. SKIN: There is no rash. There is no edema. There is no diaphoresis. NEURO: The patient is awake, alert, and oriented. The patient is cooperative. The patient has no focal neurologic deficits. The patient has normal speech. Cranial nerves II through XII grossly intact. Mild tremulousness MUSCULOSKELETAL: There is no evidence of acute injury. ED Course Vital Signs 12/31/21 22:05 Temperature 98.4 F Pulse Rate 111 H Respiratory 20 Rate Blood Pressure 146/86 O2 Sat by Pulse 97 Oximetry ED Medical Decision Making - Lab Data Result diagrams: 12/31/21 23:08 12/31/21 23:08 Laboratory Tests 12/31/21 12/31/21 12/31/21 23:08 23:08 23:08 WBC 6.9 RBC 4.94 Hgb 13.8 Hct 41.7 MCV 85 MCH 28 MCHC 33 RDW 18.3 H Plt Count 264 Lymph % (Auto) 12.2 L [place] % (Auto) 5.7 Eos % (Auto) 0.2 Baso % (Auto) 0.2 Lymph # (Auto) 0.8 L [place] # (Auto) 0.4 Eos # (Auto) 0.0 Baso # (Auto) 0.0 Seg Neutrophils % 81.7 H Seg Neutrophils # 5.7 Sodium 138 Potassium 3.9 Chloride 102.8 Carbon Dioxide 21 L Anion Gap 18 BUN 6 L Creatinine 0.9 Estimated GFR > 60 BUN/Creatinine Ratio 7 Glucose 122 H Calcium 9.7 Magnesium 2.00 HCG, Qual Negative - Differential Diagnosis Seizure Critical care attestation.: If time is entered above; I have spent that time in minutes in the direct care of this critically ill patient, excluding procedure time. ED Disposition Clinical Impression: Seizure Disposition: 01 HOME / SELF CARE / HOMELESS Is pt being admited?: No Does the pt Need Aspirin: No Condition: Stable Instructions: Epilepsy, [id number] Additional Instructions: Return to the emergency department should you develop worsening symptoms, inability to tolerate food or liquids, high fever or any other concerns Prescriptions: levETIRAcetam [Keppra TAB] 500 mg PO BID #90 tablet Ondansetron [Zofran ODT TAB] 8 mg PO Q8HR #20 tab.rapdis Referrals: SUBHASH OSMAN MD [Staff Physician] - 3-5 Days (Dr. Osman is a neurologist. Please follow-up with him for further evaluation) Time of Disposition: 00:01
[2021-12-31 23:20] LABS: Basophils % (Auto) 0.2 % (0.0-1.8); Eosinophils % (Auto) 0.2 % (0.0-4.3); Hematocrit 41.7 % (30.3-42.9); Hemoglobin 13.8 gm/dl (10.1-14.3); Lymphocytes # (Auto) 0.8 K/mm3 (1.2-5.4); Lymphocytes % (Auto) 12.2 % (13.4-35.0); Mean Corpuscular HGB Conc 33 % (30-34); Mean Corpuscular Volume 85 fl (79-97); Monocytes # (Auto) 0.4 K/mm3 (0.0-0.8); Monocytes % (Auto) 5.7 % (0.0-7.3); Platelet Count 264 K/mm3 (140-440); Red Blood Count 4.94 M/mm3 (3.65-5.03); Red Cell Distribution Width 18.3 % (13.2-15.2)
[2021-12-31 23:34] VITALS: BP 148/84
[2021-12-31 23:46] LABS: BUN/Creatinine Ratio 7; Blood Urea Nitrogen 6 mg/dL (7-17); Calcium 9.7 mg/dL (8.4-10.2); Hemolysis Index 10
== END 2022-01-01 00:27 | disposition home or self-care (01) ==
LOC: ED 21:07
DX: R56.9 Unspecified convulsions (principal); F17.200 Nicotine dependence, unspecified, uncomplicated; J45.909 Unspecified asthma, uncomplicated
CPT/HCPCS: 36415; 80048; 83735; 84703; 85025; 96374; 96375; 99283; J1953; J2405